=== PATIENT | male | born 1995 | race Native Hawaiian/Other Pacific Islander ===

== ENCOUNTER 2018-09-11 00:49 | Emergency (ER) | payer OTHER ==
[~2018-09-11] VITALS: Ht 188 cm; Wt 76.2 kg
[2018-09-11 01:28] LABS: PLATELET COUNT 304 K/uL (142-355)
[2018-09-11 01:50] VITALS: BP 128/72; TEMP 98.3
[2018-09-11 02:04] LABS: POTASSIUM 3.5 mmol/L (3.6-5.2)
== END 2018-09-11 01:51 | disposition home or self-care (01) ==
LOC: ED 00:49
DX: K64.4 Residual hemorrhoidal skin tags (principal)
CPT/HCPCS: 36415; 80053; 82272; 85027; 99283